=== PATIENT | female | born 1965 | race Caucasian/White ===

== ENCOUNTER 2020-10-01 22:34 | Emergency (ER) | payer OTHER ==
[~2020-10-01] VITALS: Ht 172.7 cm; Wt 88.6 kg
[2020-10-01 22:37] VITALS: BP 142/74
[2020-10-01] MEDS ORDERED: TETanus/Pertussis (Acell)/Diphther VAC/PF (Tdap-Adult) 0.5ml syringe IMVAC ONE (23:05)
[2020-10-01] MEDS ORDERED: LIDOcaine 1% W/epiNEPHrine 1:200,000 10ml vial IJ ONE (23:05)
== END 2020-10-02 00:15 | disposition home or self-care (01) ==
LOC: ER 22:35
DX: S61.411A Laceration without foreign body of right hand, initial encounter (principal); R20.0 Anesthesia of skin; Z72.89 Other problems related to lifestyle; Z88.0 Allergy status to penicillin; X58.XXXA Exposure to other specified factors, initial encounter; Y93.89 Activity, other specified; Y92.89 Other specified places as the place of occurrence of the external cause; Y99.8 Other external cause status
CPT/HCPCS: 12002; 90471; 90715; 99283

== ENCOUNTER 2022-11-11 19:50 | Emergency (ER) | payer OTHER ==
[~2022-11-11] VITALS: Ht 172.7 cm; Wt 99.4 kg
[2022-11-11] MEDS ORDERED: iohexol 300mg/ml 100ml inj. ONE (21:25)
[2022-11-11 21:39] LABS: CLARITY,URINE CLEAR (Clear); COLOR,URINE YELLOW (Yellow); GLUCOSE, URINE NEGATIVE (Neg); KETONES,URINE NEGATIVE (Neg); LEUKOCYTE ESTERASE ,URINE NEGATIVE (Neg); NITRITES, URINE NEGATIVE (Neg); OCCULT BLOOD,URINE TRACE-INTACT (Neg); PH,URINE 5.5 (4.8-8.0); PROTEIN,URINE NEGATIVE (Neg); UROBILINOGEN,URINE 0.2 E.U/dL (0.2-1.0)
[2022-11-11 21:43] LABS: BASOPHILS # (AUTO) 0.1 X10'3 (0-0.2); BASOPHILS % (AUTO) 1.7 % (0-1); EOSINOPHILS # (AUTO) 0.4 X10'3 (0-0.9); EOSINOPHILS % (AUTO) 4.7 % (0-6); HEMATOCRIT 45.1 % (35.0-45.0); HEMOGLOBIN 15.2 g/dl (12.0-16.0); LYMPHOCYTES # (AUTO) 2.4 X10'3 (1.1-4.8); LYMPHOCYTES % (AUTO) 31.7 % (21-51); MEAN CORPUSCULAR HEMOGLOBIN 30.4 PG (27.0-31.0); MEAN CORPUSCULAR HGB CONC 33.8 g/dL (33.0-36.5); MEAN CORPUSCULAR VOLUME 89.8 FL (78-98); MEAN PLATELET VOLUME 8.8 FL (7.4-10.4); MONOCYTES # (AUTO) 0.4 X10'3 (0-0.9); MONOCYTES % (AUTO) 5.7 % (2-12); NEUTROPHILS # (AUTO) 4.3 X10'3 (1.8-7.7); NEUTROPHILS % (AUTO) 56.2 % (42-75); PLATELET COUNT 295 X10'3 (140-440); RED BLOOD COUNT 5.02 X10'6 (4.20-5.60); RED CELL DISTRIBUTION WIDTH 14.2 % (11.5-14.5); WHITE BLOOD COUNT 7.7 X10'3 (4.5-11.0)
[2022-11-11 21:44] LABS: BACTERIA,URINE FEW /HPF (Neg); RBC,URINE 0-2 /HPF (0-2); SQUAMOUS EPITHELIAL CELL,UR FEW /LPF (FEW); UA COLLECTION TYPE NON-SPECIFIED; WBC,URINE NONE SEEN /HPF (0-4)
[2022-11-11 21:54] LABS: APTT 26 SECONDS (22-32)
[2022-11-11 21:55] LABS: ALANINE AMINOTRANSFERASE 52 U/L (12-78); ALBUMIN 4.3 G/DL (3.4-5.0); ALBUMIN/GLOBULIN RATIO 1.3 (1.1-1.5); ALKALINE PHOSPHATASE 74 IU/L (46-116); ANION GAP 10 (8-16); ASPARTATE AMINO TRANSFERASE 33 U/L (10-37); BILIRUBIN,TOTAL 0.3 MG/DL (0.1-1.0); BLOOD UREA NITROGEN 12 MG/DL (7-18); BUN/CREATININE RATIO 15.6 (6.6-38.0); CALCIUM 9.1 MG/DL (8.5-10.1); CHLORIDE 106 MMOL/L (99-107); CREATININE 0.77 MG/DL (0.40-0.90); GLUCOSE 120 MG/DL (70-104); POTASSIUM 3.7 MMOL/L (3.5-5.1); SODIUM 143 MMOL/L (135-145); TOTAL CARBON DIOXIDE 26.7 MMOL/L (24-32); TOTAL PROTEIN 7.7 G/DL (6.4-8.2); eGFR 78 ML/MIN
[2022-11-11] MEDS ORDERED: CYCL-1 PO (23:36)
[2022-11-11] MEDS ORDERED: orphenadrine citrate 60mg/2ml inj. IM ONE (23:40)
[2022-11-11] MEDS ORDERED: ketorolac trometh. 30mg/ml inj. IM ONE (23:40)
[2022-11-12 00:06] VITALS: BP 150/88
== END 2022-11-12 00:09 | disposition home or self-care (01) ==
LOC: ER 19:51
DX: S30.1XXA Contusion of abdominal wall, initial encounter (principal); M54.2 Cervicalgia; Z72.89 Other problems related to lifestyle; Z88.0 Allergy status to penicillin; Z79.899 Other long term (current) drug therapy; V87.7XXA Person injured in collision between other specified motor vehicles (traffic), initial encounter; Y93.89 Activity, other specified; Y92.488 Other paved roadways as the place of occurrence of the external cause; Y99.8 Other external cause status
CPT/HCPCS: 36415; 70450; 71260; 72125; 74177; 80053; 81001; 85025; 85610; 85730; 96372; 99285; J1885; J2360; J3490; Q9967

== ENCOUNTER 2024-07-12 12:57 | Emergency (ER) | payer OTHER ==
[~2024-07-12] VITALS: Ht 172.7 cm; Wt 87.0 kg
[~2024-07-12 12:57] MED LIST: CYCL-1 PO
[2024-07-12 13:05] VITALS: TEMP 97.9
[2024-07-12] MEDS: famotidine/PF 10 mg/ml inj IV ONE (13:39)
[2024-07-12] MEDS: methylPREDNISolone sod succ 125mg/2ml vial IV ONE (13:39)
[2024-07-12] MEDS ORDERED: FAMO40TA73 PO (15:12)
[2024-07-12] MEDS ORDERED: DIPH25CA83 PO (15:12)
[2024-07-12] MEDS ORDERED: EPIN0.3P3 IJ (15:15)
[2024-07-12 15:37] VITALS: BP 145/79; PULSE 73; RESP 12; O2SAT 96
== END 2024-07-12 15:41 | disposition home or self-care (01) ==
LOC: ER 12:58
DX: L50.8 Other urticaria (principal); T78.49XA Other allergy, initial encounter; R13.19 Other dysphagia; R21 Rash and other nonspecific skin eruption; Z88.0 Allergy status to penicillin; Z79.899 Other long term (current) drug therapy; Z72.89 Other problems related to lifestyle; X58.XXXA Exposure to other specified factors, initial encounter
CPT/HCPCS: 96374; 96375; 99284; J2919; J3490